=== PATIENT | female | born 1990 | race Caucasian/White ===

== ENCOUNTER 2017-02-21 21:17 | Emergency (ER) | payer MEDICAID, MEDICARE ==
[~2017-02-21 21:17] MED LIST: CARA1TAB6 PO; NAPR500T PO; OMEP40CA2 PO; ROBA750T PO
[2017-02-21 21:19] VITALS: BP 129/82; PULSE 88; RESP 15; TEMP 98.6; O2SAT 100
== END 2017-02-21 21:47 | disposition left against medical advice (07) ==
LOC: NED 21:17
DX: Z53.29 Procedure and treatment not carried out because of patient's decision for other reasons (principal)
CPT/HCPCS: 99281

== ENCOUNTER 2018-09-04 13:39 | Inpatient (IN) ==
[2018-09-04 14:48] LABS: Baso % (Auto) 0.2 % (0.0-2.0); Eos % (Auto) 0.4 % (0.0-4.0); Hematocrit 39.1 % (35.0-46.0); Hemoglobin 13.3 gm/dL (11.6-15.3); Lymph # (Auto) 1.6 th/mm3 (1.0-4.8); Lymph % (Auto) 15.9 % (9.0-44.0); Mean Corpuscular HGB Conc 33.9 % (32.0-36.0); Mean Corpuscular Hemoglobin 29.5 pg (27.0-34.0); Mean Corpuscular Volume 86.9 fL (80.0-100.0); Mean Platelet Volume 11.4 fL (7.0-11.0); Mono # (Auto) 0.4 th/mm3 (0.0-0.9); Mono % (Auto) 4.3 % (0.0-8.0); Neut # (Auto) 7.8 th/mm3 (1.8-7.7); Neut % (Auto) 79.2 % (16.0-70.0); Platelet Count 157 th/mm3 (150-450); White Blood Count 9.8 th/mm3 (4.0-11.0)
[2018-09-04 15:06] LABS: Alanine Aminotransferase 27 U/L (10-53); Albumin 3.8 g/dL (3.4-5.0); Anion Gap 8 meq/L (5-15); Aspartate Aminotransferase 10 U/L (15-37); Blood Urea Nitrogen 15 mg/dL (7-18); Calcium 8.4 mg/dL (8.5-10.1); Carbon Dioxide 27.5 meq/L (21.0-32.0); Chloride 106 meq/L (98-107); Glomerular Filtration Rate Greater Than 89 mL/min (>89); Glucose,Random 89 mg/dL (74-106); Potassium 3.6 meq/L (3.5-5.1); Sodium 141 meq/L (136-145)
[2018-09-04 15:15] LABS: Alkaline Phosphatase 72 U/L (45-117); Total Protein 7.7 g/dL (6.4-8.2)
[2018-09-04 16:21] LABS: Amphetamine Screen,Urine Neg (Neg); Barbiturate Screen,Urine Neg (Neg); Cannabinoid Screen,Urine Neg (Neg); Cocaine Screen,Urine Neg (Neg)
[2018-09-04 16:26] LABS: Opiate Screen,Urine Neg (Neg)
[2018-09-04 17:53] VITALS: RESP 16
[2018-09-04] MEDS ORDERED: Aluminum/Magnesium/Simethacone Susp 30 ML UDC PO PRN (18:12)
[2018-09-04] MEDS ORDERED: Acetaminophen 325 MG Tablet PO PRN (18:12)
--- NOTE | 2018-09-04 18:21 | ED ---
HPI General Chief Complaint: Psychiatric Symptoms Stated Complaint: psych eval Time Seen by Provider: 09/04/18 16:28 Source: patient Mode of arrival: ambulatory Limitations: no limitations History of Present Illness HPI Narrative: 28-year-old female presents to the emergency department under Yarbrough act. According to the Yarbrough act report the patient was on the [facility] bridge, standing on the outside of the bridge railing, about to jump. Patient advised that she was suicidal and depressed over her life. After about 10 minutes the patient was offered the officers hand to help her back over and she eventually grabbed the law enforcement's hand and came over the railing. On my examination the patient says that she is not suicidal anymore. She was suicidal and was going to jump from the bridge in an attempt to kill herself. When I asked her if she has history of suicidal attempts she states "not really. " She does have history of self cutting and last self cut in 2008. Denies homicidal ideations. Says she is depressed and "everything" is making her feel the way she felt today. Denies auditory visual hallucinations. Denies illicit drug use or tobacco use. Reports drinking alcohol within the past month for the first time ever. Denies any emergent medical complaints. Denies psychiatric history. Denies significant past medical history. No known allergies. Has a primary care provider does not know the name. Has no other medical complaints. No other modifying factors or associated signs and symptoms. Related Data Home Medications Medication Instructions Recorded Confirmed No Known Home Medications 09/04/18 09/04/18 Allergies Allergy/AdvReac Type Severity Reaction Status Date / Time No Known Allergies Allergy Verified 09/04/18 13:52 Review of Systems ROS: all other systems reviewed are negative [facility] Medical History Medical History Patient denies medical problems (Acute) Surgical History Surgical History History of (Acute) Social History Social History Substance History: No History of Abuse Second Hand Smoke Exposure: No Smoking Status: Never smoker How Often Do You Have a Drink Containing Alcohol: Monthly or less Recent Travel in [place] within the Last 8 Weeks: No Recent Out of Country Travel within the Last 8 Weeks: No Immunization History Tetanus Immunization: Unsure Exam Narrative Exam Narrative: GENERAL: Well-nourished, well-developed female patient , in no acute distress SKIN: Warm and dry. HEAD: Atraumatic. Normocephalic. EYES: Pupils equal and round. ENT: Mucosa pink and moist. NECK: Supple. Trachea midline. CARDIOVASCULAR: Regular rate and rhythm. No murmur appreciated. RESPIRATORY: No accessory muscle use. Clear to auscultation. Breath sounds equal bilaterally. GASTROINTESTINAL: Abdomen soft, non-tender, nondistended. Hepatic and splenic margins not palpable. Bowel sounds are active 4 quadrants. MUSCULOSKELETAL: No obvious deformities. No clubbing. No cyanosis. No edema. NEUROLOGICAL: Awake and alert. Oriented 3. No obvious cranial nerve deficits. Motor grossly within normal limits. Normal speech. Moves all extremities. 5/5 strength to all extremities. PSYCHIATRIC: No delusional thought processes. No hallucinations. Course Initial Documented Vital Signs Temperature 98.2 F 09/04/18 13:52 Pulse Rate 99 H 09/04/18 13:52 Respiratory Rate 19 09/04/18 13:52 Blood Pressure 146/82 H 09/04/18 13:52 Pulse Oximetry 98 09/04/18 13:52 Last Documented Vital Signs Temperature 98.2 F 09/04/18 13:52 Pulse Rate 85 09/04/18 17:52 Respiratory Rate 16 09/04/18 17:52 Blood Pressure 140/80 09/04/18 17:52 Pulse Oximetry 100 09/04/18 17:52 Medical Decision Making [facility] Narrative Medical decision making narrative: Patient presents under a Yarbrough act. Physical examination and vital signs are essentially unremarkable. Patient has no medical complaints to report. Psych screen has been ordered. If the laboratory results are unremarkable, the patient will be medically cleared for psychiatric evaluation and disposition. Medical Screen Exam Complete: Yes Emergency Medical Condition: Yes Differential Diagnosis Differential Diagnosis: Suicidal threat, suicidal ideation, depression, adjustment disorder, medical clearance for psychiatric evaluation Lab Data Result diagrams: 09/04/18 14:00 09/04/18 14:00 POC Results POC Urine Results Negative Lab Results 09/04/18 09/04/18 09/04/18 Range/Units 14:00 14:00 14:00 WBC 9.8 (4.0-11.0) th/mm3 RBC 4.50 (4.00-5.30) mil/mm3 Hgb 13.3 (11.6-15.3) gm/dL Hct 39.1 (35.0-46.0) % MCV 86.9 (80.0-100.0) fL MCH 29.5 (27.0-34.0) pg MCHC 33.9 (32.0-36.0) % RDW 14.0 (11.6-17.2) % Plt Count 157 (150-450) th/mm3 MPV 11.4 H (7.0-11.0) fL Neut % (Auto) 79.2 H (16.0-70.0) % Lymph % (Auto) 15.9 (9.0-44.0) % Andrews % (Auto) 4.3 (0.0-8.0) % Eos % (Auto) 0.4 (0.0-4.0) % Baso % (Auto) 0.2 (0.0-2.0) % Neut # (Auto) 7.8 H (1.8-7.7) th/mm3 Lymph # (Auto) 1.6 (1.0-4.8) th/mm3 Andrews # (Auto) 0.4 (0.0-0.9) th/mm3 Eos # (Auto) 0.0 (0.0-0.4) th/mm3 Baso # (Auto) 0.0 (0.0-0.2) th/mm3 WBC Differential . Differential Comment Auto diff final Sodium 141 (136-145) meq/L Potassium 3.6 (3.5-5.1) meq/L Chloride 106 (98-107) meq/L Carbon Dioxide 27.5 (21.0-32.0) meq/L Anion Gap 8 (5-15) meq/L BUN 15 (7-18) mg/dL Creatinine 0.53 (0.50-1.00) mg/dL Estimated GFR Greater than 89 (>89) mL/min Random Glucose 89 (74-106) mg/dL Calcium 8.4 L (8.5-10.1) mg/dL Magnesium 2.0 (1.5-2.5) mg/dL Total Bilirubin 1.0 (0.2-1.0) mg/dL AST 10 L (15-37) U/L ALT 27 (10-53) U/L Alkaline Phosphatase 72 (45-117) U/L Total Protein 7.7 (6.4-8.2) g/dL Albumin 3.8 (3.4-5.0) g/dL TSH 1.310 (0.358-3.740) uIU/mL Salicylates Less than 1.7 L (2.8-20.0) mg/dL Urine Opiates Screen (Neg) Acetaminophen Less than 2.0 L (10.0-30.0) mcg/mL Ur Barbiturates Screen (Neg) Ur Amphetamines Screen (Neg) U Benzodiazepines Scrn (Neg) Urine Cocaine Screen (Neg) U Cannabinoids Screen (Neg) Serum Alcohol Less than 3 (0-5) mg/dL 09/04/18 Range/Units 15:53 WBC (4.0-11.0) th/mm3 RBC (4.00-5.30) mil/mm3 Hgb (11.6-15.3) gm/dL Hct (35.0-46.0) % MCV (80.0-100.0) fL MCH (27.0-34.0) pg MCHC (32.0-36.0) % RDW (11.6-17.2) % Plt Count (150-450) th/mm3 MPV (7.0-11.0) fL Neut % (Auto) (16.0-70.0) % Lymph % (Auto) (9.0-44.0) % Andrews % (Auto) (0.0-8.0) % Eos % (Auto) (0.0-4.0) % Baso % (Auto) (0.0-2.0) % Neut # (Auto) (1.8-7.7) th/mm3 Lymph # (Auto) (1.0-4.8) th/mm3 Andrews # (Auto) (0.0-0.9) th/mm3 Eos # (Auto) (0.0-0.4) th/mm3 Baso # (Auto) (0.0-0.2) th/mm3 WBC Differential Differential Comment Sodium (136-145) meq/L Potassium (3.5-5.1) meq/L Chloride (98-107) meq/L Carbon Dioxide (21.0-32.0) meq/L Anion Gap (5-15) meq/L BUN (7-18) mg/dL Creatinine (0.50-1.00) mg/dL Estimated GFR (>89) mL/min Random Glucose (74-106) mg/dL Calcium (8.5-10.1) mg/dL Magnesium (1.5-2.5) mg/dL Total Bilirubin (0.2-1.0) mg/dL AST (15-37) U/L ALT (10-53) U/L Alkaline Phosphatase (45-117) U/L Total Protein (6.4-8.2) g/dL Albumin (3.4-5.0) g/dL TSH (0.358-3.740) uIU/mL Salicylates (2.8-20.0) mg/dL Urine Opiates Screen Neg (Neg) Acetaminophen (10.0-30.0) mcg/mL Ur Barbiturates Screen Neg (Neg) Ur Amphetamines Screen Neg (Neg) U Benzodiazepines Scrn Neg (Neg) Urine Cocaine Screen Neg (Neg) U Cannabinoids Screen Neg (Neg) Serum Alcohol (0-5) mg/dL Discharge Plan Discharge Disposition Patient Disposition: Sign Out(ED Internal Use Only) Discharge Condition Condition: Stable Discharge Order Discharge Orders: ED Use Only Admit Order (Routine); Ordered 09/04/18 Ordered By: Silvana Barragan Discharge Details Diagnosis: Encounter for psychiatric assessment Physicians Team ED Provider: Douglas Angel ED Midlevel Provider: Sweta Puentes Primary Care Provider: Primary Care Jeny Yarbrough Attending Provider: Juan Mcdaniel Discharge Interventions Interventions: Vital Signs Last Done: 09/04/18 17:52 Status ED Status: Admitted Patient
--- NOTE | 2018-09-04 18:28 | ED ---
HPI - Psych - General Source: patient Mode of arrival: ambulatory Limitations: no limitations - History of Present Illness complaint: suicidal ideation Onset (ago): month(s) Duration: getting worse History of same: No Relieving factors: none Exacerbating factors: other (External stressors) Context: significant life stressor Associated psychiatric symptoms: depression - General Chief Complaint: Psychiatric Symptoms Stated Complaint: psych eval Time Seen by Provider: 09/04/18 16:28 - History of Present Illness HPI Narrative: This is a 28-year-old , female who is not previously known to the psychiatric department at this facility. She presents under a Yarbrough act for reportedly standing on the outside of [place] [employer] [place] railing in anticipation of jumping to her . She advised the officer on the scene that she was. Please also reports that he spoke to her for approximately 10 minutes before he was able to convince her to come back over the railing. Reviewed electronic medical record, labs, and discussed case with staff. Toxicology screen is negative. Patient was evaluated and her room in J pod with LIAM Ayers present. Patient is found to be awake, alert and oriented x4. Her speech is clear, logical, organized, abnormal matt and volume. She reports that she had been driving along and impulsively decided to end her life. She reports such external stressors as financial difficulties, marital issues, the of her mother in January of this year, and a knee injury which rendered her unable to work. She reports that her mother due to her chronic alcoholism. She denies any previous inpatient psychiatric admissions or attempted suicides. However, she does state that she feels overwhelmed at this time. She denies previous suicidal attempts but states that she was a cutter when she was younger, "like any normal teenager". She reports that she lives with her and her 2 daughters aged 8 and 5. She states that she feels her depressive symptoms began in March. She reports that she has been sleeping well and has had an increase in appetite. She does state that she tends to "stress eat". She does report anhedonia stating that she typically just likes to stay in bed and has been seclusive. She denies concentration issues but does state that she has been anergic and somewhat lethargic. She denies smoking cigarettes, using illicit substances, and claims to have only drinks alcohol once. 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 Actually, when asked if there are firearms in the house she laughed rather inappropriately and stated, "not yet but who knows what the future will bring". (Silvana Barragan) - Related Data Home Medications Medication Instructions Recorded Confirmed No Known Home Medications 09/04/18 09/04/18 Allergies Allergy/AdvReac Type Severity Reaction Status Date / Time No Known Allergies Allergy Verified 09/04/18 13:52 Review of Systems All other systems reviewed negative except as stated in HPI [facility] - History History Provided By: Patient - Medical History Medical History: Medical History (Last Reviewed 09/04/18 @ 18:20 by JOSE CRUZ Hsieh) Patient denies medical problems - Surgical History Surgical History: Surgical History (Last Reviewed 09/04/18 @ 18:20 by JOSE CRUZ Hsieh) History of - Tobacco History Second Hand Smoke Exposure: No Smoking Status: Never smoker - Alcohol History How Often Do You Have a Drink Containing Alcohol: Monthly or less - Substance Use History Substance History: No History of Abuse - Travel History Recent Travel in the [facility] Within the Last 8 Weeks: No Recent Travel Out of the Country Within the Last 8 Weeks: No - Immunization History Tetanus Immunization: Unsure Psychiatric History - Psychiatric History Psychiatric Treatment History: Denies Previous Treatment History of Inpatient Treatment: No Firearms in Home: No Physical Exam - General Limitations: no limitations General appearance: alert - Head Head exam: atraumatic, normocephalic - Eye Eye exam: Present: normal appearance - Neurological Exam Neurological exam: Present: alert, oriented X3 - Psychiatric Psychiatric exam: Present: depressed, anxious - Skin Skin exam: Present: warm, dry Mental Status Examination Appearance: Appropriate Consciousness: Alert Orientation: x4 Motor Activity: Normal gait Speech: Unremarkable Language: Adequate Fund of Knowledge: Adequate Attention and Concentration: Adequate Memory: Unremarkable Mood: Sad, Anxious Affect: Sad, Anxious Thought Process & Associations: Intact Thought Content: Appropriate Hallucination Type: None Delusion Type: None Suicidal Ideation: Yes Suicidal Plan: Yes Suicidal Intention: Yes Homicidal Ideation: No Homicidal Plan: No Homicidal Intention: No Insight: Poor Judgment: Impulsive Initial Documented Vital Signs Temperature 98.2 F 09/04/18 13:52 Pulse Rate 99 H 09/04/18 13:52 Respiratory Rate 19 09/04/18 13:52 Blood Pressure 146/82 H 09/04/18 13:52 Pulse Oximetry 98 09/04/18 13:52 Last Documented Vital Signs Temperature 98.2 F 09/04/18 13:52 Pulse Rate 85 09/04/18 17:52 Respiratory Rate 16 09/04/18 17:52 Blood Pressure 140/80 09/04/18 17:52 Pulse Oximetry 100 09/04/18 17:52 MDM - Psych - Diagnosis (1) Major depressive disorder Status: Acute (2) Suicidal ideation Status: Acute - Differential Diagnosis Likely: suicidal ideation, depression, acute anxiety - Lab Data Result diagrams: 09/04/18 14:00 09/04/18 14:00 - MDM Narrative Medical decision making narrative: Several concerns were raised upon examination of this patient. She reports a history of self-harm being raised by a chronic alcoholic mother. She claims that she has been depressed since March but has not been treated. She reports multiple external stressors including financial and marital woes. She admits to feeling overwhelmed. When told that she would be admitted to the inpatient unit the patient became somewhat irritated stating, "no, I just want to go home now". When told that would not be possible she asked to see someone else. Have explained that she would see a psychiatrist tomorrow. There may be some slight cognitive delay versus some personality disorder type traits however, I cannot rule out that she is still is intent on taking her life. Therefore, she will be admitted to a locked inpatient psychiatric unit for further evaluation and treatment as deemed necessary. I anticipate she will be resistant to treatment and therefore will be admitted under the Yarbrough act. (Silvana Barragan) - Lab Data POC Results POC Urine Results Negative Lab Results 09/04/18 09/04/18 09/04/18 Range/Units 14:00 14:00 14:00 WBC 9.8 (4.0-11.0) th/mm3 RBC 4.50 (4.00-5.30) mil/mm3 Hgb 13.3 (11.6-15.3) gm/dL Hct 39.1 (35.0-46.0) % MCV 86.9 (80.0-100.0) fL MCH 29.5 (27.0-34.0) pg MCHC 33.9 (32.0-36.0) % RDW 14.0 (11.6-17.2) % Plt Count 157 (150-450) th/mm3 MPV 11.4 H (7.0-11.0) fL Neut % (Auto) 79.2 H (16.0-70.0) % Lymph % (Auto) 15.9 (9.0-44.0) % Swisher % (Auto) 4.3 (0.0-8.0) % Eos % (Auto) 0.4 (0.0-4.0) % Baso % (Auto) 0.2 (0.0-2.0) % Neut # (Auto) 7.8 H (1.8-7.7) th/mm3 Lymph # (Auto) 1.6 (1.0-4.8) th/mm3 Swisher # (Auto) 0.4 (0.0-0.9) th/mm3 Eos # (Auto) 0.0 (0.0-0.4) th/mm3 Baso # (Auto) 0.0 (0.0-0.2) th/mm3 WBC Differential . Differential Comment Auto diff final Sodium 141 (136-145) meq/L Potassium 3.6 (3.5-5.1) meq/L Chloride 106 (98-107) meq/L Carbon Dioxide 27.5 (21.0-32.0) meq/L Anion Gap 8 (5-15) meq/L BUN 15 (7-18) mg/dL Creatinine 0.53 (0.50-1.00) mg/dL Estimated GFR Greater than 89 (>89) mL/min Random Glucose 89 (74-106) mg/dL Calcium 8.4 L (8.5-10.1) mg/dL Magnesium 2.0 (1.5-2.5) mg/dL Total Bilirubin 1.0 (0.2-1.0) mg/dL AST 10 L (15-37) U/L ALT 27 (10-53) U/L Alkaline Phosphatase 72 (45-117) U/L Total Protein 7.7 (6.4-8.2) g/dL Albumin 3.8 (3.4-5.0) g/dL TSH 1.310 (0.358-3.740) uIU/mL Salicylates Less than 1.7 L (2.8-20.0) mg/dL Urine Opiates Screen (Neg) Acetaminophen Less than 2.0 L (10.0-30.0) mcg/mL Ur Barbiturates Screen (Neg) Ur Amphetamines Screen (Neg) U Benzodiazepines Scrn (Neg) Urine Cocaine Screen (Neg) U Cannabinoids Screen (Neg) Serum Alcohol Less than 3 (0-5) mg/dL 09/04/18 Range/Units 15:53 WBC (4.0-11.0) th/mm3 RBC (4.00-5.30) mil/mm3 Hgb (11.6-15.3) gm/dL Hct (35.0-46.0) % MCV (80.0-100.0) fL MCH (27.0-34.0) pg MCHC (32.0-36.0) % RDW (11.6-17.2) % Plt Count (150-450) th/mm3 MPV (7.0-11.0) fL Neut % (Auto) (16.0-70.0) % Lymph % (Auto) (9.0-44.0) % Swisher % (Auto) (0.0-8.0) % Eos % (Auto) (0.0-4.0) % Baso % (Auto) (0.0-2.0) % Neut # (Auto) (1.8-7.7) th/mm3 Lymph # (Auto) (1.0-4.8) th/mm3 Swisher # (Auto) (0.0-0.9) th/mm3 Eos # (Auto) (0.0-0.4) th/mm3 Baso # (Auto) (0.0-0.2) th/mm3 WBC Differential Differential Comment Sodium (136-145) meq/L Potassium (3.5-5.1) meq/L Chloride (98-107) meq/L Carbon Dioxide (21.0-32.0) meq/L Anion Gap (5-15) meq/L BUN (7-18) mg/dL Creatinine (0.50-1.00) mg/dL Estimated GFR (>89) mL/min Random Glucose (74-106) mg/dL Calcium (8.5-10.1) mg/dL Magnesium (1.5-2.5) mg/dL Total Bilirubin (0.2-1.0) mg/dL AST (15-37) U/L ALT (10-53) U/L Alkaline Phosphatase (45-117) U/L Total Protein (6.4-8.2) g/dL Albumin (3.4-5.0) g/dL TSH (0.358-3.740) uIU/mL Salicylates (2.8-20.0) mg/dL Urine Opiates Screen Neg (Neg) Acetaminophen (10.0-30.0) mcg/mL Ur Barbiturates Screen Neg (Neg) Ur Amphetamines Screen Neg (Neg) U Benzodiazepines Scrn Neg (Neg) Urine Cocaine Screen Neg (Neg) U Cannabinoids Screen Neg (Neg) Serum Alcohol (0-5) mg/dL
[2018-09-04] MEDS: Senna/Docusate Sodium 8.6/50 MG Tablet PO SCH (21:07)
[2018-09-05 05:33] VITALS: BP 135/77; PULSE 85; TEMP 98.2; O2SAT 99
[2018-09-05 07:17] LABS: Anion Gap 7 meq/L (5-15); Blood Urea Nitrogen 13 mg/dL (7-18); Calcium 8.6 mg/dL (8.5-10.1); Carbon Dioxide 26.9 meq/L (21.0-32.0); Chloride 107 meq/L (98-107); Cholesterol 152 mg/dL (120-200); Glomerular Filtration Rate Greater Than 89 mL/min (>89); Glucose,Random 97 mg/dL (74-106); Potassium 3.8 meq/L (3.5-5.1); Sodium 141 meq/L (136-145)
[2018-09-05 07:18] LABS: HDL Cholesterol 50.6 mg/dL (40.0-60.0); LDL Cholesterol,Calculated 86 mg/dL (0-99); Triglycerides 78 mg/dL (42-150)
[2018-09-05] MEDS: Senna/Docusate Sodium 8.6/50 MG Tablet PO SCH ×2 (09:08→12:19)
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
[2018-09-05 14:00] LABS: Hemoglobin A1c 5.2 % (4.3-6.0)
== END 2018-09-05 14:37 | disposition home or self-care (01) ==
LOC: NEPJ 13:39 → NEDA 18:16 → H260 19:44
PROVIDERS: ADMIT Psychiatry & Neurology Psychiatry; ATTEND Psychiatry & Neurology Psychiatry
DX: F43.25 Adjustment disorder with mixed disturbance of emotions and conduct